=== PATIENT | male | born 1950 | race Caucasian/White ===

== ENCOUNTER 2023-09-02 13:24 | Inpatient (IN) | payer MEDICARE ==
[2023-09-02] VITALS (11 sets, daily range): BP systolic 90–165; BP diastolic 52–83; PULSE 72–101; TEMP 97.1–98.3
[~2023-09-02] VITALS: Ht 162.6 cm; Wt 55.2 kg
--- NOTE | 2023-09-02 13:30 | NUR ---
PATIENT IS A DIRECT ADMIT VIA POV FROM [facility] WITH AN INGUINAL HERNIA INTO THE SCROTUM. A&O. VSS. NPO. ADMITED WITH RIGHT FORARM IV. PRE-OP FLUIDS NOW HANDING. OBTAINED CONSENT AND ON CHART. TICKET TO RIDE ON CHART. HEAD TO TOE ASSESSMENT COMPLETE. NO HOME MEDS. PATIENT REPORTS HE HASN'T SEEN A DOCTOR IN 12 YEARS. SURGEON & HOSPITALIST BOTH ROUNDING. PLAN IS TO GO TO THE OR WITHIN THE HOUR.
[2023-09-02] MEDS ORDERED: NS 1,000 ML IV SCH (14:00)
[2023-09-02] MEDS ORDERED: *Potassium Replacement Protocol MC SCH (14:00)
[2023-09-02 14:22] LABS: HEMATOCRIT 42.5 % (42.0-52.0); HEMOGLOBIN 15.1 g/dl (13.5-18.0); MEAN CELL VOLUME 89 fl (80.0-100.0); MEAN CORPUSCULAR HEMOGLOBIN 32 pg (27-31); MEAN CORPUSCULAR HGB CONC 36 g/dl (33.0-37.0); MEAN PLATELET VOLUME 8.2 fl (7.4-10.4); PLATELET COUNT 318 K/mm3 (130-400); RED BLOOD COUNT 4.76 M/mm3 (4.20-5.60); REDCELL DISTRIBUTION WIDTH-CV 12.8 % (11.5-14.5)
[2023-09-02] MEDS ORDERED: NS 10 ML IV ONE (14:32)
[2023-09-02] MEDS ORDERED: fentaNYL 50 MCG/ML 2 ML VIAL ONE ×2 (14:32→15:03)
[2023-09-02] MEDS ORDERED: Lidocaine PF 2% (20 MG/ML) 5 ML VIAL ONE (14:32)
[2023-09-02] MEDS ORDERED: Topical Skin Adhesive 1 EACH (1 ML) TOP ONE (14:35)
[2023-09-02] MEDS ORDERED: Lidocaine PF 2% (20 MG/ML) 10 ML POLY AMP IJ ONE ×3 (14:35)
[2023-09-02 14:36] LABS: CALCIUM 9.6 mg/dL (8.4-10.2); CREATININE, serum 0.75 mg/dL (0.72-1.25); POTASSIUM 4.1 mEq/L (3.5-4.5)
[2023-09-02] MEDS ORDERED: ePHEDrine 50 MG/ML VIAL ONE (14:52)
[2023-09-02] MEDS ORDERED: HYDROmorphone 1 MG/1 ML SYRINGE [PACU/SDC ONLY] IV PRN (15:00)
[2023-09-02] MEDS ORDERED: Ondansetron 4 MG/2 ML VIAL IV PRN (15:00)
[2023-09-02] MEDS ORDERED: NORCO 325 MG-51 TAB PO (16:07)
[2023-09-02] MEDS ORDERED: Acetaminophen 325 MG TAB PO PRN (16:15)
[2023-09-02] MEDS ORDERED: Morphine 4 MG/ML VIAL IV PRN (16:15)
--- NOTE | 2023-09-02 16:35 | NUR ---
PATIENT BACK IN ROOM POSTOP. AWAKE & ALERT. NOTED SOFT B/P IN THE 90'S, ALL OTHER VSS. TELE BACK ON. NO C/O PAIN OR NAUSEA. LIQUIDS AT BEDSIDE. RLQ INCISION IS CD&I. SCROTAL SUPPORT INPLACE. HEAD TO TOE ASSESSMENT COMPLETE. PATIENT RESTING UP IN BED WITH CALL LIGHT IN REACH.
--- NOTE | 2023-09-02 20:00 | NUR ---
PT IS ALERT AND ORIENTED X4. AMBULATES IN HALLWAY TO MEDICAL SIDE AND BACK WITH ONE ASSIST. HAS RFA INT. DENIES NEED FOR PAIN MEDS AT THIS TIME. INCISION TO RLQ GLUED/DRY. VOIDING WITHOUT PROBLEM.
[2023-09-03 00:02] VITALS: BP 111/64; PULSE 82; TEMP 98.1
[2023-09-03 00:43] VITALS: BP_SYST 111
--- NOTE | 2023-09-03 04:00 | NUR ---
PT RESTING ON HIS SIDE IN BED. REFUSES SCDS. DENIES PAIN AT THIS TIME.
[2023-09-03 04:07] VITALS: BP 96/57; PULSE 71; TEMP 98.1
[2023-09-03 04:30] VITALS: BP_SYST 96
[2023-09-03 06:54] LABS: BASO % 0.2 % (0.0-2.0); LYMPH # 1.1 K/mm3 (1.2-3.4); LYMPH % 9.7 % (20.0-51.0); MEAN CORPUSCULAR HGB CONC 36 g/dl (33.0-37.0); MEAN PLATELET VOLUME 8.5 fl (7.4-10.4); MONO # 1.1 K/mm3 (0.1-0.6); MONO % 9.7 % (1.7-9.3); PLATELET COUNT 303 K/mm3 (130-400); RED BLOOD COUNT 4.12 M/mm3 (4.20-5.60); REDCELL DISTRIBUTION WIDTH-CV 12.5 % (11.5-14.5)
[2023-09-03 07:10] LABS: ALBUMIN 3.1 g/dL (3.4-4.8); CALCIUM 9.1 mg/dL (8.4-10.2); CREATININE, serum 0.68 mg/dL (0.72-1.25); PHOSPHOROUS 4.1 mg/dL (2.3-4.7); POTASSIUM 4.9 mEq/L (3.5-4.5)
[2023-09-03 07:17] LABS: HEMATOCRIT 36.4 % (42.0-52.0); HEMOGLOBIN 13.1 g/dl (13.5-18.0); MEAN CELL VOLUME 88 fl (80.0-100.0); MEAN CORPUSCULAR HEMOGLOBIN 32 pg (27-31)
[2023-09-03 08:00] VITALS: BP 93/58; PULSE 64; TEMP 98.3
--- NOTE | 2023-09-03 08:00 | NUR ---
PATIENT IS A&O. VSS. REPORTS MODERATE PAIN WITH ACTIVITY OR COUGHING. GAVE PRN NORCO PER PATIENT REQUEST WITH AM MEDS. NO C/O N/V. BREAKFAST TRAY ORDERED. HEAD TO TOE ASSESSMENT COMPLETE. INCISION IS CD&I WITH GLUED CLOSURE. PATIENT EASY SBA. PATIENT HOPING TO DISCHARGE HOME LATER TODAY.
[2023-09-03 09:00] VITALS: BP_SYST 93
--- NOTE | 2023-09-03 11:52 | NUR ---
Alfredito Worker met [facility] patient to discuss discharge planning. Patient verified that he lives in [place], [place], alone with his dog. His dog is being cared for by a friend while patient is hospitalized. Patient states he does not have a PCP and hasn't been to a doctor in over 14 years. Johntent states he has Medicare part A, and this is the first time he's ever used it. Patient provided his card for this SW to make a copy of for chart, as patient is listed as self pay. Patient states he put [facility] "because he had to" but states he doesn't take any medicine and doesn't need a pharmacy. Patient is independent and does not use any DME. Patient states his of 35 years, Tash ([phone]) lives in [place] and he lives in [place] after coming here to care for his mother prior to her . Patient states "it works good this way", in reference to not living with his . Patient also lists his friend Rohit Mai ([phone]) as a contact and who will privide him a ride home at discharge. Patient denies any discharge needs at this time. Discharge plan: Home
--- NOTE | 2023-09-03 12:30 | NUR ---
PATIENT'S RIDE IS HERE. DISCHARGE INSTRUCTIONS GIVEN, E-SCRIPT SENT, AND DISCUSSED F/U APT IN [facility]. ANSWERED QUESTIONS/CONCERNS. DC'D RIGHT FORARM IV AND COVERED SITE WITH [employer]. TELE DC'D. PATIENT IS DRESSED, PACKED AND DISCHARGED.
[2023-09-04] MEDS ORDERED: NORCO 325 MG-51 TAB PO (14:23)
== END 2023-09-03 12:30 | disposition home or self-care (01) | DRG 351 ==
LOC: SURG 13:24
PROVIDERS: Surgery; ADMIT Internal Medicine
PROC: 0YU50JZ Supplement Right Inguinal Region with Synthetic Substitute, Open Approach (ICD-10-PCS; principal; 2023-09-02 15:00)
DX: K40.30 Unilateral inguinal hernia, with obstruction, without gangrene, not specified as recurrent (principal); E87.1 Hypo-osmolality and hyponatremia; J44.9 Chronic obstructive pulmonary disease, unspecified; N50.1 Vascular disorders of male genital organs; F17.210 Nicotine dependence, cigarettes, uncomplicated; Z88.5 Allergy status to narcotic agent
CPT/HCPCS: C1781; J0690; J2704; J3010; J7030